=== PATIENT | male | born 1930 | race Caucasian/White ===

== ENCOUNTER 2017-01-10 22:41 | Emergency (ER) | payer OTHER ==
[~2017-01-10] VITALS: Ht 177.8 cm; Wt 77.8 kg
[2017-01-11 01:12] LABS: HEMATOCRIT 44.9 % (38.0-50.0); MCHC 32.3 G/DL (30.0-36.0); MCV 105.4 FL (86-99); MEAN PLAT.VOLUME 9.5 uM^3 (9.0-12.4); PLATELET COUNT 101 K/uL (156-360); RBC DIS.WIDTH-CV 16.7 % (11.8-14.6); RBC DIS.WIDTH-SD 61.3 % (39-53); RED BLOOD COUNT 4.26 M/uL (4.00-5.50); WHITE BLOOD COUNT 11.6 K/uL (4.1-10.2)
[2017-01-11 01:24] LABS: CHLORIDE 114 mEq/L (99-109); POTASSIUM 3.3 mEq/L (3.7-5.4); SODIUM 147 mEq/L (136-147)
[2017-01-11 01:26] LABS: GLUCOSE 146 mg/dL (70-99)
[2017-01-11 01:27] LABS: ANION GAP 9 MEQ/L (2-14)
[2017-01-11 01:29] LABS: GFR ESTIMATE (CALCULATED) > 59 mL/min/
[2017-01-11 01:30] LABS: UREA NITROGEN (BUN) 17 mg/dL (9-23)
[2017-01-11 01:48] LABS: ADD MIUA? YES; BILIRUBIN NEGATIVE; BLOOD MODERATE; COLOR YELLOW ((YELLOW)); GLUCOSE (STRIP) NEGATIVE; KETONES NEGATIVE; LEUKOCYTES NEGATIVE; NITRITE NEGATIVE; PROTEIN (STRIP) 30; SPECIFIC GRAVITY 1.023 (1.000-1.030); UROBILINOGEN 0.2 MG/DL (0.2-1.0)
[2017-01-11 01:53] LABS: BACTERIA NONE SEEN /HPF; EPITHELIAL CELLS NONE SEEN /HPF; HYALINE CASTS 0-5 /LPF; MUCUS TRACE /LPF; RED BLOOD CELLS TNTC /HPF (0-5); UCUL ADDED? NO; WHITE BLOOD CELLS 0-5 /HPF (0-5)
[2017-01-11] MEDS ORDERED: FLOMAX0.4 MG PO (02:02)
[2017-01-11] MEDS ORDERED: CIPRO500 MG PO (02:02)
[2017-01-11 02:16] VITALS: BP 130/73
== END 2017-01-11 02:16 | disposition home or self-care (01) ==
LOC: EME 22:41
PROVIDERS: Physician Assistant
PROC: 0T9B70Z Drainage of Bladder with Drainage Device, Via Natural or Artificial Opening (ICD-10-PCS; principal; 2017-01-11)
DX: R33.9 Retention of urine, unspecified (principal); Z87.891 Personal history of nicotine dependence; Z95.1 Presence of aortocoronary bypass graft; Z95.5 Presence of coronary angioplasty implant and graft
CPT/HCPCS: 80048; 81003; 85027; 99281; 99284

== ENCOUNTER 2017-01-15 13:09 | Inpatient (IN) | payer MEDICARE ==
[~2017-01-15] VITALS: Ht 154.9 cm; Wt 68.5 kg
[~2017-01-15 13:09] MED LIST: CIPRO500 MG PO; FLOMAX0.4 MG PO
[2017-01-15 16:06] LABS: HEMATOCRIT 39.3 % (38.0-50.0); MCH 35.1 PG (29.0-34.0); MCHC 34.1 G/DL (30.0-36.0); MCV 102.9 FL (86-99); MEAN PLAT.VOLUME 9.3 uM^3 (9.0-12.4); PLATELET COUNT 87 K/uL (156-360); RBC DIS.WIDTH-CV 16.2 % (11.8-14.6); RBC DIS.WIDTH-SD 60.8 % (39-53); RED BLOOD COUNT 3.82 M/uL (4.00-5.50); WHITE BLOOD COUNT 9.2 K/uL (4.1-10.2)
[2017-01-15 16:12] LABS: ADD MIUA? YES; BILIRUBIN NEGATIVE; BLOOD SMALL; COLOR YELLOW ((YELLOW)); GLUCOSE (STRIP) NEGATIVE; KETONES NEGATIVE; LEUKOCYTES NEGATIVE; NITRITE NEGATIVE; PROTEIN (STRIP) NEGATIVE; SPECIFIC GRAVITY 1.014 (1.000-1.030); UROBILINOGEN 0.2 MG/DL (0.2-1.0)
[2017-01-15 16:20] LABS: CHLORIDE 111 mEq/L (99-109); POTASSIUM 2.6 mEq/L (3.7-5.4); SODIUM 146 mEq/L (136-147)
[2017-01-15 16:20] LABS: BACTERIA NONE SEEN /HPF; EPITHELIAL CELLS NONE SEEN /HPF; HYALINE CASTS 0-5 /LPF; MUCUS TRACE /LPF; UCUL ADDED? NO; WHITE BLOOD CELLS 0-5 /HPF (0-5)
[2017-01-15 16:22] LABS: GLUCOSE 117 mg/dL (70-99)
[2017-01-15 16:23] LABS: ANION GAP 10 MEQ/L (2-14)
[2017-01-15 16:24] LABS: TOTAL BILIRUBIN 1.7 mg/dL (0.0-1.0)
[2017-01-15 16:25] LABS: ALKALINE PHOSPHATASE 46 IU/L (3-129)
[2017-01-15 16:26] LABS: GFR ESTIMATE (CALCULATED) > 59 mL/min/
[2017-01-15 16:27] LABS: UREA NITROGEN (BUN) 9 mg/dL (9-23)
[2017-01-15 16:31] LABS: TROP-I INTERPRETATION NEGATIVE; TROPONIN-I 0.02 ng/mL (0.0-0.30)
[2017-01-15] MEDS ORDERED: FLOMAX0.4 MG PO (18:20)
[2017-01-15] MEDS ORDERED: ATORVASTATIN CA40 MG PO (18:20)
[2017-01-15] MEDS ORDERED: SYMBICORT60 INHALAT IH (18:20)
[2017-01-15] MEDS ORDERED: VENTOLIN HFA18 GM IH (18:20)
[2017-01-15] MEDS ORDERED: NITROSTAT0.4 MG SL (18:21)
[2017-01-15] MEDS ORDERED: IRON325 M1 PO (18:21)
[2017-01-15] MEDS ORDERED: TOPROL XL50 MG PO (18:21)
[2017-01-15] MEDS ORDERED: ISOSORBIDE MONO60 MG PO (18:21)
[2017-01-15] MEDS ORDERED: LISINOPRIL5 MG PO (18:21)
[2017-01-15] MEDS ORDERED: PRADAXA150 MG PO (18:21)
[2017-01-15] MEDS ORDERED: OMEPRAZOLE20 MG PO (18:21)
[2017-01-15] MEDS ORDERED: FUROSEMIDE20 MG PO (18:22)
[2017-01-15] MEDS ORDERED: FISH OIL 1,2001 EAC4 PO (18:22)
[2017-01-15] MEDS ORDERED: ONE-A-DAY ESSE1 EAC1 PO (18:22)
[2017-01-15 21:30] VITALS: BP 102/64
[2017-01-16] VITALS (7 sets, daily range): BP systolic 98–116; BP diastolic 56–75
[2017-01-16 00:04] LABS: TROP-I INTERPRETATION NEGATIVE; TROPONIN-I 0.02 ng/mL (0.0-0.30)
[2017-01-16 06:34] LABS: TROP-I INTERPRETATION NEGATIVE; TROPONIN-I 0.02 ng/mL (0.0-0.30)
[2017-01-16 09:01] LABS: ANION GAP 10 MEQ/L (2-14); CHLORIDE 109 MEQ/L (99-109); MAGNESIUM 1.5 mg/dl (1.3-2.7); POTASSIUM 2.8 MEQ/L (3.7-5.4); SAMPLE HEMOLYSIS CHECK 0; SAMPLE ICTERIC CHECK 0; SAMPLE LIPEMIA CHECK 0; SODIUM 148 MEQ/L (136-147)
[2017-01-16 09:07] LABS: GFR ESTIMATE (CALCULATED) > 59 mL/min/; GLUCOSE 117 mg/dL (70-99); UREA NITROGEN (BUN) 11 mg/dL (9-23)
[2017-01-16 13:36] LABS: C DIFF TOXIN NEGATIVE (NEGATIVE); PROBE CHECK PASS; SPECIMEN PROCESSING CONTROL PASS
[2017-01-17 04:06] VITALS: BP 119/71
[2017-01-17 05:46] LABS: HEMATOCRIT 40.5 % (38.0-50.0); MCH 34.5 PG (29.0-34.0); MCHC 32.8 G/DL (30.0-36.0); MCV 105.2 FL (86-99); MEAN PLAT.VOLUME 10.2 uM^3 (9.0-12.4); PLATELET COUNT 97 K/uL (156-360); RBC DIS.WIDTH-CV 16.6 % (11.8-14.6); RBC DIS.WIDTH-SD 63.9 % (39-53); RED BLOOD COUNT 3.85 M/uL (4.00-5.50); WHITE BLOOD COUNT 10.4 K/uL (4.1-10.2)
[2017-01-17 06:40] LABS: ANION GAP 9 MEQ/L (2-14); CHLORIDE 111 MEQ/L (99-109); GFR ESTIMATE (CALCULATED) > 59 mL/min/; GLUCOSE 114 mg/dL (70-99); SAMPLE HEMOLYSIS CHECK 0; SAMPLE ICTERIC CHECK 0; SAMPLE LIPEMIA CHECK 0; SODIUM 147 MEQ/L (136-147); UREA NITROGEN (BUN) 15 mg/dL (9-23)
[2017-01-17 06:44] LABS: MAGNESIUM 2.1 mg/dl (1.3-2.7); POTASSIUM 3.6 MEQ/L (3.7-5.4)
[2017-01-17 08:00] VITALS: BP 113/73
[2017-01-17 12:21] VITALS: BP 116/63
[2017-01-17 16:33] VITALS: BP 99/55
[2017-01-17 20:05] VITALS: BP 140/70
[2017-01-17 23:23] VITALS: BP 125/77
[2017-01-18] VITALS (7 sets, daily range): BP systolic 99–143; BP diastolic 65–78
[2017-01-19 04:00] VITALS: BP 110/67
[2017-01-19 08:02] VITALS: BP 113/72
[2017-01-19] MEDS ORDERED: METOPROLOL TART25 MG PO (10:35)
[2017-01-19] MEDS ORDERED: FINASTERIDE5 MG PO (10:35)
[2017-01-19] MEDS ORDERED: DIGOXIN125 MCG PO (10:35)
[2017-01-19] MEDS ORDERED: DITROPAN5 MG PO (10:35)
[2017-01-19] MEDS ORDERED: IMDUR60 MG PO (10:35)
[2017-01-19 11:53] VITALS: BP 119/68
== END 2017-01-19 12:14 | disposition home or self-care (01) | DRG 726 ==
LOC: EME 13:09 → 4EAST 19:54 → EDOF 19:54 → 4EAST 21:20
PROVIDERS: Emergency Medicine; Internal Medicine; Nurse Practitioner Adult Health
DX: N40.0 Benign prostatic hyperplasia without lower urinary tract symptoms (principal); I25.810 Atherosclerosis of coronary artery bypass graft(s) without angina pectoris; I10 Essential (primary) hypertension; D50.9 Iron deficiency anemia, unspecified; I50.9 Heart failure, unspecified; E78.00 Pure hypercholesterolemia, unspecified; D69.6 Thrombocytopenia, unspecified; I48.2 Chronic atrial fibrillation; E87.6 Hypokalemia; R60.0 Localized edema; I27.2 Other secondary pulmonary hypertension; R33.9 Retention of urine, unspecified; J44.9 Chronic obstructive pulmonary disease, unspecified; Z95.5 Presence of coronary angioplasty implant and graft; Z95.1 Presence of aortocoronary bypass graft; Z87.891 Personal history of nicotine dependence
CPT/HCPCS: 71010; 80048; 80053; 81003; 83735; 83880; 84484; 85027; 87493; 93005; 93306; 94640; 94640 76; 99202; 99281; 99285; J1160; J1940; J3475; J7040